=== PATIENT | female | born 1975 | race Caucasian/White ===

== ENCOUNTER 2018-02-20 01:58 | Emergency (ER) | payer MEDICAID ==
[~2018-02-20] VITALS: Ht 154.9 cm; Wt 77.1 kg
[2018-02-20 02:00] VITALS: BP 169/102
--- NOTE | 2018-02-20 02:00 | NUR ---
to bed # 4 ambulatory report given to Berta García
--- NOTE | 2018-02-20 02:00 | NUR ---
PT PRESENTED ER WITH C/O SOB DUE TO ASTHMA ATTACK. PT STATED SHE GOT OFF WORK AND HAD DIFFICULTY BREATHING. PT STATES SHE HAD BEEN DOING BREATHING TREATMENTS BUT HAS HAD NO RELIEF. PT HAS AUDIBLE WHEEZES BILATERAL THROUGHOUT. PT O2 SAT. IS 95 % ON RA AT THIS TIME. PTHAS A DRY NON PRODUCTIVE COUGH AT THIS TIME. PT MED. HX IS ASTHMA AND HTN AND ALLERGIES TO ACETAMENOPHEN. PT IS A/O X 4. PT DENIES FEVER N/V. SKIN IS PINK/WARM/DRY; VSS; PATIENT POSITIONED FOR COMFORT; HOB ELEVATED; BEDRAILS UP X2; BED DOWN. ER MD MADE AWARE OF PT STATUS.
[2018-02-20] MEDS ORDERED: ALBUTEROL SULFATE/IPRATROPIU 3 ML SOL IH ONE ×2 (02:10→02:20)
[2018-02-20] MEDS ORDERED: methylPREDNISolone SS 125 MG in WATER STERILE 2 ML IM ONE (02:15)
[2018-02-20] MEDS ORDERED: ALBUTEROL 0.083% 2.5 MG/3 ML NEBU INH ONE (02:20)
--- NOTE | 2018-02-20 02:23 | NUR ---
Respiratory Therapist at bedside for respiratory intervention.
--- NOTE | 2018-02-20 03:00 | NUR ---
PT STATED SHE HAS RELIEF FROM THE BREATHING TREATMENT. PT HAS MINIMAL WHEEZING ON EXHALE ON RIGHT SIDE OF LUNG. ER MD MADE AWARE OF STATUS.
--- NOTE | 2018-02-20 03:08 | NUR ---
Dr. Rodriguez evaluating patient at bedside.
[2018-02-20 03:54] VITALS: BP 140/97
--- NOTE | 2018-02-20 03:54 | NUR ---
Patient discharged with v/s stable. Written and verbal after care instructions given and explained. Patient alert, oriented and verbalized understanding of instructions. Ambulatory with steady gait. All questions addressed prior to discharge. ID band removed. Patient advised to follow up with PMD. Rx of ALBUTEROL INHALATION, ALBUTEROL AEROSOL, PREDNISONE WAS given. Patient educated on indication of medication including possible reaction and side effects. Opportunity to ask questions provided and answered.
== END 2018-02-20 03:54 | disposition home or self-care (01) ==
LOC: MED 01:58
DX: J45.901 Unspecified asthma with (acute) exacerbation (principal); Z88.6 Allergy status to analgesic agent
CPT/HCPCS: 71045; 94640; 94760; 96372; 99284; J2930; J7613; J7620; Q0092

== ENCOUNTER 2018-03-03 16:40 | Emergency (ER) | payer MEDICAID ==
[~2018-03-03] VITALS: Ht 154.9 cm; Wt 77.1 kg
[2018-03-03 16:45] VITALS: BP 147/100
[2018-03-03] MEDS ORDERED: MAG SULF 2000 MG/WATER PREMIX 50 ML IV ONE (17:30)
[2018-03-03] MEDS ORDERED: NACL 0.9% 1,000 ML IV ONE (17:30)
[2018-03-03] MEDS ORDERED: methylPREDNISolone SS 125 MG in WATER STERILE 2 ML IV ONE (17:30)
[2018-03-03] MEDS ORDERED: ALBUTEROL SULFATE/IPRATROPIU 3 ML SOL IH ONE (17:30)
--- NOTE | 2018-03-03 17:30 | NUR ---
RT AT BEDSIDE FOR INTERVENTION.
--- NOTE | 2018-03-03 17:59 | NUR ---
XRAY AT BEDSIDE
[2018-03-03 19:15] VITALS: BP 147/100
--- NOTE | 2018-03-03 19:16 | NUR ---
Patient discharged with v/s stable. Written and verbal after care instructions given and explained. Patient alert, oriented and verbalized understanding of instructions. Ambulatory with steady gait. All questions addressed prior to discharge. ID band removed. Patient advised to follow up with PMD. Rx of PREDNISONE, ALBUTEROL SULAFTE SOLUTION FOR INHALATION, ALBUTEROL INHALER given. Patient educated on indication of medication including possible reaction and side effects. Opportunity to ask questions provided and answered.
== END 2018-03-03 19:15 | disposition home or self-care (01) ==
LOC: MED 16:40
DX: J45.901 Unspecified asthma with (acute) exacerbation (principal); I10 Essential (primary) hypertension
CPT/HCPCS: 71045; 94640; 96365; 96375; 99283; J2930; J3475; J7030; J7620; Q0092

== ENCOUNTER 2018-04-04 12:03 | Emergency (ER) | payer MEDICAID ==
[~2018-04-04] VITALS: Ht 152.4 cm; Wt 83.6 kg
[2018-04-04 12:04] VITALS: BP 156/93
--- NOTE | 2018-04-04 12:07 | NUR ---
PATIENT AMBULATED TO BED 2.
--- NOTE | 2018-04-04 12:10 | NUR ---
42y/f bib self with c/o sob x 3 days with accessory muscle use and audible exp whz; Has been taking mn tx at home with no relief hx; asthma, htn rx; albuterol
[2018-04-04] MEDS ORDERED: ALBUTEROL SULFATE/IPRATROPIU 3 ML SOL IH ONE ×2 (12:15)
[2018-04-04] MEDS ORDERED: DEXAMETHASONE 10 MG/ML VIAL IM ONE (12:15)
--- NOTE | 2018-04-04 12:21 | NUR ---
ADMITTING DX: SOB HX: ASTHMA AWAKE AND ALERT RESPONSIVE TO BEHAVIORAL SCIENCE CHAIR VERBAL COMMANDS [facility]W POSITION EDUCATION PROVIDED TO PATIENT WITH ACKNOWLEDGEMENT ON [facility] THERAPY RESPIRATORY DRUG AND PEAK FLOW METER [facility] THERAPY GIVEN ORDERED ENCOURAGED PATIENT FOR INTERMITTENT DEEP BREATHING AND COUGH DURING THERAPY TOLERATED WELL WITHOUT ADVERSE REACTIONS NOTED PEAK FLOW ASSESSMENT before 110 L/M after 180 L/M
--- NOTE | 2018-04-04 12:22 | NUR ---
RT AT BEDSIDE
--- NOTE | 2018-04-04 12:41 | NUR ---
FOLLOW UP [facility] THERAPY GIVEN ORDERED ENCOURAGED PATIENT FOR INTERMITTENT DEEP BREATHING AND COUGH DURING THERAPY TOLERATED WELL WITHOUT ADVERSE REACTIONS NOTED
[2018-04-04 14:29] VITALS: BP 136/84
--- NOTE | 2018-04-04 14:29 | NUR ---
Patient discharged with v/s stable. Written and verbal after care instructions given and explained. Patient alert, oriented and verbalized understanding of instructions. Ambulatory with steady gait. All questions addressed prior to discharge. ID band removed. Patient advised to follow up with PMD. Rx of azithromycin, promethazinem, prednisone given. Patient educated on indication of medication including possible reaction and side effects. Opportunity to ask questions provided and answered.
== END 2018-04-04 14:29 | disposition home or self-care (01) ==
LOC: MED 12:03
DX: J98.01 Acute bronchospasm (principal); J44.9 Chronic obstructive pulmonary disease, unspecified; I10 Essential (primary) hypertension; Z88.6 Allergy status to analgesic agent
CPT/HCPCS: 36415; 87804; 94640; 96372; 99284; J1100; J7620

== ENCOUNTER 2018-05-22 15:42 | Emergency (ER) | payer MEDICAID ==
[~2018-05-22] VITALS: Ht 154.9 cm; Wt 77.1 kg
[2018-05-22 15:49] VITALS: BP 189/106
--- NOTE | 2018-05-22 15:49 | NUR ---
PT AMBULATES TO BED 10
--- NOTE | 2018-05-22 15:50 | NUR ---
PT. PRESENT TO THE ED DUE TO SOB , DIFFICULTY BREATHING X 3 DAYS. PT. STATES " I HAVE TAKEN MY INHALER AND MY NEBULIZER TREATMENT BUT IT HAS NOT HELPED". PT. HAS ACCESORY MUSCLE USE, ABLE TO SPEAK IN FULL AND COMPLETE SENTENCES. TACHYPNEIC. SKIN WARM AND DRY AND APPROPRIATE FOR ETHNICITY. 95%VIA ROOM AIR AND STATES " MY CHEST JUST FEELS TIGHT". DENIES ANY CHEST PAIN, DENIES N/V/D. ER MD MADE AWARE. SAFETY PRECAUTIONS. WILL CONTINUE TO MONITOR. RT NOTIFIED. NO HISTORY OF INTUBATION PER PATIENT.
[2018-05-22] MEDS ORDERED: predniSONE 20 MG TAB PO ONE (15:55)
[2018-05-22] MEDS ORDERED: IPRATROPIUM 0.02% 0.5 MG/2.5 ML NEBU INH ONE (15:55)
[2018-05-22] MEDS ORDERED: ALBUTEROL 0.083% 2.5 MG/3 ML NEBU INH ONE ×3 (15:55→18:50)
--- NOTE | 2018-05-22 15:57 | NUR ---
RT AT BEDSIDE AT THIS TIME.
--- NOTE | 2018-05-22 16:33 | NUR ---
PT. COUGHING AND STATES " I STILL FEEL LIKE MY CHEST IS TIGHT". AUDIBLE WHEEZING NOTED. ER MD HIGGINS MADE AWARE. RT NOTIFIED FOR TREATMENT. HOB ELEVATED 90 DEGREES.
--- NOTE | 2018-05-22 17:04 | NUR ---
ER MD HIGGINS RE-EVALUATING PATIENT
[2018-05-22] MEDS ORDERED: methylPREDNISolone SS 125 MG in WATER STERILE 2 ML IV ONE (17:05)
[2018-05-22] MEDS ORDERED: LORazepam 2 MG/ML VIAL IVP ONE (17:05)
[2018-05-22] MEDS ORDERED: MAG SULF 2000 MG/WATER PREMIX 50 ML IV ONE (17:05)
--- NOTE | 2018-05-22 17:12 | NUR ---
XRAY AT BEDSIDE AT THIS TIME
--- NOTE | 2018-05-22 18:15 | NUR ---
PT. RESTING COMFORTABLY IN BED, HOB ELEVATED. VSS. WILL CONTINUE TO MONITOR.
--- NOTE | 2018-05-22 18:54 | NUR ---
RT AT BEDSIDE AT THIS TIME.
--- NOTE | 2018-05-22 19:07 | NUR ---
Pt report given to MICHAEL IVERSON . Transfer of care at this time.
--- NOTE | 2018-05-22 19:10 | NUR ---
Pt report TAKEN FROM SONALI RODRIGUEZ . Transfer of care at this time.
[2018-05-22 20:31] VITALS: BP 155/99
--- NOTE | 2018-05-22 20:31 | NUR ---
Patient discharged with v/s stable. Written and verbal after care instructions given and explained. Patient alert, oriented and verbalized understanding of instructions. Ambulatory with steady gait. All questions addressed prior to discharge. ID band removed. Patient advised to follow up with PMD. Rx of PREDNISONE AND ALBUTEROL given. Patient educated on indication of medication including possible reaction and side effects. Opportunity to ask questions provided and answered.
== END 2018-05-22 20:31 | disposition home or self-care (01) ==
LOC: MED 15:42
DX: J45.901 Unspecified asthma with (acute) exacerbation (principal); R07.89 Other chest pain; M54.9 Dorsalgia, unspecified; I10 Essential (primary) hypertension; Z88.6 Allergy status to analgesic agent
CPT/HCPCS: 71045; 94640; 96365; 96366; 96375; 99285; J2060; J2930; J3475; J7512; J7613; J7644; Q0092

== ENCOUNTER 2018-06-09 17:58 | Emergency (ER) | payer MEDICAID ==
[~2018-06-09] VITALS: Ht 154.9 cm; Wt 77.1 kg
[2018-06-09 18:05] VITALS: BP 134/87
[2018-06-09] MEDS ORDERED: ALBUTEROL SULFATE/IPRATROPIU 3 ML SOL IH ONE (18:05)
[2018-06-09] MEDS ORDERED: predniSONE 20 MG TAB PO ONE (18:10)
[2018-06-09] MEDS ORDERED: ALBUTEROL 0.083% 2.5 MG/3 ML NEBU INH ONE (18:10)
--- NOTE | 2018-06-09 18:48 | NUR ---
43 Y/O F CAME TO ED FOR ASTHMA EXACERBATION. LABORED BREATHING. NO USE OF ACCESSROY MUSCLE. LUNG CARRILLO CLEAR. NOTIFIED. WILL CONTINUE TO MONITOR.
--- NOTE | 2018-06-09 19:03 | NUR ---
Patient discharged with v/s stable. Written and verbal after care instructions given and explained. Patient alert, oriented and verbalized understanding of instructions. Ambulatory with steady gait. All questions addressed prior to discharge. ID band removed. Patient advised to follow up with PMD. Rx of Albuterol and Prednisone given. Patient educated on indication of medication including possible reaction and side effects. Opportunity to ask questions provided and answered.
[2018-06-09 19:04] VITALS: BP 134/87
== END 2018-06-09 19:03 | disposition home or self-care (01) ==
LOC: MED 17:58
DX: J45.901 Unspecified asthma with (acute) exacerbation (principal); J02.9 Acute pharyngitis, unspecified; I10 Essential (primary) hypertension; Z88.6 Allergy status to analgesic agent
CPT/HCPCS: 94640; 99283; J7512; J7613; J7620

== ENCOUNTER 2018-07-14 11:53 | Emergency (ER) | payer MEDICAID ==
[~2018-07-14] VITALS: Ht 154.9 cm; Wt 81.2 kg
[2018-07-14 12:00] VITALS: BP 116/80
--- NOTE | 2018-07-14 12:06 | NUR ---
Patient ambulated to bed 3.
--- NOTE | 2018-07-14 12:15 | NUR ---
PT BIB SELF TO THE ED WITH THE CHIEF C/O SOB X3 DAYS. HAS COUGH WITH PHLEGM X3 DAYS. NO BLOOD IN COUGH. WHEEZING LUNGS. DENIES FEVER. DENIES CHEST PAIN. STATES CHEST TIGHTNESS. DENIES N/V/D. DENIES OTHER PROBLEM. PLACED PT ON O2 AT 2 LTR/MIN VIA NC. HOB ELEVATED. BP ELEVATED. HX OF HTN. PT MISSED MORNING DOSE OF LISINOPRIL. PT EVALUATED BY ER .
--- NOTE | 2018-07-14 12:22 | NUR ---
PER V.O. DR. DINESH VAUGHN CONTINOUS NEBULIZER THERAPY X 1 HOUR WITH ALBUTEROL (2.5mg) x 5 UD + IPRATROPUIM BROMIDE (0.5mg) x 1 UD
--- NOTE | 2018-07-14 12:28 | NUR ---
ADMITTING DX: SOB HX ASTHMA AWAKE AND ALERT PATIENT ON SUPPLEMENTAL OXYGEN AT 2 LPM VIA NC EDCUATION PROVIDED TO PATIENT WITH ACKNOWLEDGEMENT ON [facility] THERAPY RESPIRATORY DRUGS AND PEAK FLOW METER HHN THERAPY AND RESIRATORY DRUGS GIVEN ORDERED ENCOURAGED PATIENT FOR INTERMITTENT DEEP BREATHING DURING THERAPY Addendum: 07/14/18 at 1312 by FAITHA PEAK FLOW: before 165 l/m after 240 l/m
[2018-07-14] MEDS ORDERED: IPRATROPIUM 0.02% 0.5 MG/2.5 ML NEBU INH ONE (12:35)
[2018-07-14] MEDS ORDERED: ALBUTEROL 0.083% 2.5 MG/3 ML NEBU INH ONE ×2 (12:35→12:45)
[2018-07-14] MEDS ORDERED: predniSONE 20 MG TAB PO ONE (12:35)
[2018-07-14 13:25] VITALS: BP 153/89
--- NOTE | 2018-07-14 13:52 | NUR ---
PATIENT ELOPED FROM FACILITY. DISCHARGE INSTRUCTIONS NOT GIVEN TO PATIENT. DR. VAUGHN NOTIFIED.
== END 2018-07-14 13:52 | disposition left against medical advice (07) ==
LOC: MED 11:53
DX: J45.901 Unspecified asthma with (acute) exacerbation (principal); I10 Essential (primary) hypertension; Z88.6 Allergy status to analgesic agent
CPT/HCPCS: 94640; 99283; J7512; J7613; J7644

== ENCOUNTER 2019-03-17 16:15 | Emergency (ER) | payer MEDICAID ==
[~2019-03-17] VITALS: Ht 154.9 cm; Wt 79.4 kg
[2019-03-17 16:21] VITALS: BP 175/104
--- NOTE | 2019-03-17 16:21 | NUR ---
PT TAKEN TO ER BED 07
[2019-03-17] MEDS ORDERED: ALBUTEROL SULFATE/IPRATROPIU 3 ML SOL IH ONE ×2 (16:25→16:40)
[2019-03-17] MEDS ORDERED: DEXAMETHASONE 10 MG/ML VIAL IM ONE (16:40)
[2019-03-17] MEDS ORDERED: diphenhydrAMINE 50 MG/ML VIAL IM ONE (16:40)
--- NOTE | 2019-03-17 17:33 | NUR ---
PT WITH KNOWN PMH: ASTHMA. STATES DIFF BREATHING 2 DAYS AGO UNRELIEVED BY HH[facility] TX AT HOME. PROGRESSING IN SEVERITY
[2019-03-17 18:43] VITALS: BP 149/93
--- NOTE | 2019-03-17 18:43 | NUR ---
Patient discharged with v/s stable. Written and verbal after care instructions given and explained. Patient alert, oriented and verbalized understanding of instructions. Ambulatory with steady gait. All questions addressed prior to discharge. ID band removed. Patient advised to follow up with PMD. Rx of ALBUTEROL INH, PROMETHAZINE, AZITHROMYCIN, PREDNISONE given. Patient educated on indication of medication including possible reaction and side effects. Opportunity to ask questions provided and answered.
== END 2019-03-17 18:43 | disposition home or self-care (01) ==
LOC: MED 16:15
DX: J45.901 Unspecified asthma with (acute) exacerbation (principal); J06.9 Acute upper respiratory infection, unspecified
CPT/HCPCS: 94640; 96372; 99284; J1100; J1200; J7620

== ENCOUNTER 2022-06-11 23:37 | Emergency (ER) | payer MEDICAID ==
[~2022-06-11] VITALS: Ht 154.9 cm; Wt 81.6 kg
[2022-06-11 23:40] VITALS: BP 189/100
--- NOTE | 2022-06-11 23:40 | NUR ---
TO BED AMBULATORY
[2022-06-11 23:50] VITALS: BP 169/110
--- NOTE | 2022-06-11 23:50 | NUR ---
47 Y/O F presents with sob x3days. pt stated she has a hx of asthma abd none of her asthma medications were working at home. pt denies any pain, nvd. pt is a&ox4, skin intact. pt stated she has htn and regularly takes lisinopril. pmh- htn allergies-tylenol
--- NOTE | 2022-06-11 23:58 | NUR ---
Dr. Rodriguez at bedside
[2022-06-12] MEDS ORDERED: ALBUTEROL 0.083% 2.5 MG/3 ML NEBU INH ONE (00:05)
[2022-06-12] MEDS ORDERED: IPRATROPIUM 0.02% 0.5 MG/2.5 ML NEBU INH ONE (00:05)
[2022-06-12] MEDS ORDERED: methylPREDNISolone SS 125 MG in WATER STERILE 2 ML IM ONE (00:05)
[2022-06-12] MEDS ORDERED: WATER STERILE 10 ML MC ONE (00:20)
[2022-06-12] MEDS ORDERED: methylPREDNISolone SS 125 MG/2 ML VIAL ONE (00:20)
--- NOTE | 2022-06-12 00:20 | NUR ---
X-Ray at bedside.
--- NOTE | 2022-06-12 01:16 | NUR ---
Dr. Rodriguez examining patient.
[2022-06-12] MEDS ORDERED: PRED20TA5 PO (01:21)
[2022-06-12] MEDS ORDERED: PRON INH (01:21)
[2022-06-12] MEDS ORDERED: ALBU0.0912 IH (01:21)
--- NOTE | 2022-06-12 01:36 | NUR ---
Patient discharged with v/s stable. Written and verbal after care instructions given and explained. Patient verbalized understanding. Ambulatory with steady gait. All questions addressed prior to discharge. Advised to follow up with PMD.
== END 2022-06-12 01:36 | disposition home or self-care (01) ==
LOC: MED 23:37
DX: J45.901 Unspecified asthma with (acute) exacerbation (principal); Z79.899 Other long term (current) drug therapy; Z98.890 Other specified postprocedural states
CPT/HCPCS: 71045; 94640; 94760; 96372; 99283; J2930; J7613; J7644; Q0092

== ENCOUNTER 2022-12-13 04:00 | Emergency (ER) | payer MEDICAID ==
[~2022-12-13] VITALS: Ht 154.9 cm; Wt 77.1 kg
[~2022-12-13 04:00] MED LIST: ALBU0.0912 IH; PRED20TA5 PO; PRON INH
[2022-12-13 04:05] VITALS: BP 164/90; PULSE 118; RESP 20; TEMP 98; O2SAT 93
[2022-12-13] MEDS ORDERED: ALBUTEROL SULFATE/IPRATROPIU 3 ML SOL IH ONE (04:25)
[2022-12-13] MEDS ORDERED: predniSONE 20 MG TAB PO ONE (04:25)
[2022-12-13] MEDS ORDERED: ALBUTEROL 0.083% 2.5 MG/3 ML NEBU INH ONE ×5 (04:25→09:30)
[2022-12-13 04:28] VITALS: PULSE 127; RESP 26; O2SAT 88
[2022-12-13] MEDS ORDERED: IPRATROPIUM 0.02% 0.5 MG/2.5 ML NEBU INH ONE ×4 (06:30→09:33)
[2022-12-13 06:47] VITALS: TEMP 98
[2022-12-13 06:57] VITALS: PULSE 104; RESP 17; O2SAT 100
[2022-12-13] MEDS ORDERED: MAG SULF 2000 MG/WATER PREMIX 50 ML IV ONE (07:30)
[2022-12-13 08:07] LABS: BASOPHILS # (AUTO) 0.1 K/uL (0.00-0.22); BASOPHILS % (AUTO) 0.9 % (0.0-2.0); EOSINOPHILS # (AUTO) 0.3 K/uL (0-0.4); EOSINOPHILS % (AUTO) 3.8 % (0.0-4.0); HEMOGLOBIN 12.3 g/dL (12.0-16.0); LYMPHOCYTES # (AUTO) 0.7 K/uL (2.5-16.5); LYMPHOCYTES % (AUTO) 7.5 % (20.5-51.1); MEAN CORPUSCULAR HEMOGLOBIN 28 pg (27-31); MEAN CORPUSCULAR HGB CONC 33 g/dL (33-37); MEAN CORPUSCULAR VOLUME 82.5 fL (80-94); MONOCYTES # (AUTO) 0.2 K/uL (0.8-1.0); MONOCYTES % (AUTO) 1.8 % (1.7-9.3); NEUTROPHILS # (AUTO) 7.5 K/uL (1.8-7.7); PLATELET COUNT (AUTO) 318 K/uL (140-450); RED BLOOD CELL COUNT(AUTO) 4.48 MIL/uL (4.20-5.40); RED CELL DISTRIBUTION WIDTH 15.7 % (11.6-13.7); WHITE BLOOD COUNT (AUTO) 8.7 K/uL (4.8-10.8)
[2022-12-13 08:18] LABS: ANION GAP 13.1 (8-16); CALCIUM 8.9 mg/dL (8.5-10.1); CREATININE 1.2 mg/dL (0.6-1.3); POTASSIUM 4.1 mmol/L (3.5-5.1)
[2022-12-13] MEDS ORDERED: PRED20TA5 PO (09:14)
[2022-12-13 09:19] VITALS: BP 132/77
[2022-12-13 09:46] VITALS: PULSE 100; RESP 21; O2SAT 99
== END 2022-12-13 09:45 | disposition home or self-care (01) ==
LOC: MED 04:00
DX: J45.901 Unspecified asthma with (acute) exacerbation (principal); F41.9 Anxiety disorder, unspecified; I10 Essential (primary) hypertension; Z79.899 Other long term (current) drug therapy
CPT/HCPCS: 36415; 71045; 80048; 85025; 94640; 96365; 99285; J3475; J7512; J7613; J7644; Q0092

== ENCOUNTER 2023-09-30 22:24 | Inpatient (IN) | payer MEDICAID ==
[~2023-09-30] VITALS: Ht 152.4 cm; Wt 89.4 kg
[2023-09-30 22:29] VITALS: BP 86/54; PULSE 125; RESP 14; TEMP 95; O2SAT 98
[2023-09-30] MEDS: NACL 0.9% 1,000 ML IV ONE (22:56)
[2023-09-30 23:53] VITALS: O2SAT 100
[2023-10-01] MEDS: ONDANSETRON 4 MG/2 ML VIAL IVP ONE ×2 (00:12→04:23)
[2023-10-01] MEDS: NACL 0.9% 1,000 ML IV ONE (00:16)
[2023-10-01 00:48] LABS: ANION GAP 15.9 (8-16); CALCIUM 9.5 mg/dL (8.5-10.1); CARBON DIOXIDE 30.4 mmol/L (21-32); CREATININE 2.3 mg/dL (0.6-1.3); POTASSIUM 3.3 mmol/L (3.5-5.1)
[2023-10-01 00:51] LABS: BASOPHILS # (AUTO) 0.1 K/uL (0.00-0.22); BASOPHILS % (AUTO) 0.9 % (0.0-2.0); EOSINOPHILS # (AUTO) 0.2 K/uL (0-0.4); EOSINOPHILS % (AUTO) 2.3 % (0.0-4.0); HEMATOCRIT 38.1 % (36-48); LYMPHOCYTES # (AUTO) 2.2 K/uL (2.5-16.5); LYMPHOCYTES % (AUTO) 24.5 % (20.5-51.1); MEAN CORPUSCULAR HEMOGLOBIN 22 pg (27-31); MEAN CORPUSCULAR HGB CONC 32 g/dL (33-37); MEAN CORPUSCULAR VOLUME 69.7 fL (80-94); MONOCYTES # (AUTO) 1.3 K/uL (0.8-1.0); MONOCYTES % (AUTO) 14.4 % (1.7-9.3); NEUTROPHILS # (AUTO) 5.1 K/uL (1.8-7.7); NEUTROPHILS % (AUTO) 57.9 % (42.2-75.2); PLATELET COUNT (AUTO) 447 K/uL (140-450); RED BLOOD CELL COUNT(AUTO) 5.46 MIL/uL (4.20-5.40); RED CELL DISTRIBUTION WIDTH 21.7 % (11.6-13.7); WHITE BLOOD COUNT (AUTO) 8.9 K/uL (4.8-10.8)
[2023-10-01] MEDS: MORPHINE SULFATE 4 MG/ML SYR IVP ONE (01:32)
[2023-10-01 04:30] VITALS: O2SAT 100
[2023-10-01 06:00] LABS: BASOPHILS % (AUTO) 0.7 % (0.0-2.0); EOSINOPHILS # (AUTO) 0.1 K/uL (0-0.4); HEMATOCRIT 28.2 % (36-48); HEMOGLOBIN 9.1 g/dL (12.0-16.0); LYMPHOCYTES % (AUTO) 17.9 % (20.5-51.1); MEAN CORPUSCULAR HEMOGLOBIN 23 pg (27-31); MEAN CORPUSCULAR HGB CONC 32 g/dL (33-37); MEAN CORPUSCULAR VOLUME 69.5 fL (80-94); MONOCYTES # (AUTO) 0.6 K/uL (0.8-1.0); MONOCYTES % (AUTO) 10.4 % (1.7-9.3); PLATELET COUNT (AUTO) 271 K/uL (140-450); RED BLOOD CELL COUNT(AUTO) 4.06 MIL/uL (4.20-5.40); RED CELL DISTRIBUTION WIDTH 20.9 % (11.6-13.7)
[2023-10-01 06:05] LABS: WHITE BLOOD COUNT (AUTO) 5.8 K/uL (4.8-10.8)
[2023-10-01 06:22] LABS: ALBUMIN 3.4 g/dL (3.4-5.0); ANION GAP 11.2 (8-16); CARBON DIOXIDE 30.3 mmol/L (21-32); CREATININE 1.8 mg/dL (0.6-1.3); POTASSIUM 3.5 mmol/L (3.5-5.1); TOTAL BILIRUBIN 0.3 mg/dL (0.0-1.0); TOTAL PROTEIN, SERUM 6.8 g/dL (6.4-8.2)
[2023-10-01 06:36] VITALS: O2SAT 100
[2023-10-01] MEDS ORDERED: LISI-953 PO (06:41)
[2023-10-01] MEDS: NACL 0.9% 1,000 ML IV SCH (09:00)
[2023-10-01] MEDS: ENOXAPARIN 30 MG/0.3 ML SYR SUBQ SCH (09:20)
[2023-10-01] MEDS ORDERED: METOCLOPRAMIDE 10 MG/2 ML INJ VIAL IVP PRN (11:20)
[2023-10-01] MEDS ORDERED: LORazepam 1 MG TAB PO PRN (11:25)
[2023-10-01] MEDS: METOCLOPRAMIDE 10 MG/2 ML INJ VIAL IVP SCH (12:05)
[2023-10-01] MEDS ORDERED: ONDANSETRON 4 MG/2 ML VIAL IVP PRN (12:40)
[2023-10-01 12:58] LABS: APPEARANCE,URINE CLEAR (CLEAR); BILIRUBIN,URINE 1+ (NEGATIVE); BLOOD, URINE TRACE-I (NEGATIVE); COLOR,URINE YELLOW (YELLOW); LEUKOCYTE ESTERASE ,URINE NEGATIVE (NEGATIVE); NITRITE, URINE NEGATIVE (NEGATIVE); PH,URINE 6.5 (5.0-9.0); PROTEIN,URINE TRACE (NEGATIVE); UGLUCOSE NEGATIVE (NEGATIVE); UROBILINOGEN,URINE 0.2 EU/dL (0.2 - 1)
[2023-10-01 13:01] LABS: ICTOTEST NEGATIVE (NEGATIVE)
[2023-10-01 20:00] VITALS: BP 110/69; PULSE 80; PULSE 94; RESP 16; TEMP 97.3; O2SAT 94; O2SAT 96
[2023-10-02] MEDS: ZOLPIDEM 5 MG TAB PO PRN (02:25)
[2023-10-02 04:00] VITALS: BP 110/114; PULSE 90; RESP 16; TEMP 97.2; O2SAT 96
[2023-10-02 05:49] LABS: BASOPHILS % (AUTO) 0.8 % (0.0-2.0); EOSINOPHILS # (AUTO) 0.2 K/uL (0-0.4); EOSINOPHILS % (AUTO) 3.7 % (0.0-4.0); HEMATOCRIT 31.4 % (36-48); LYMPHOCYTES # (AUTO) 1.4 K/uL (2.5-16.5); LYMPHOCYTES % (AUTO) 22.6 % (20.5-51.1); MEAN CORPUSCULAR HEMOGLOBIN 23 pg (27-31); MEAN CORPUSCULAR HGB CONC 32 g/dL (33-37); MEAN CORPUSCULAR VOLUME 70.5 fL (80-94); MONOCYTES # (AUTO) 0.8 K/uL (0.8-1.0); MONOCYTES % (AUTO) 12.7 % (1.7-9.3); NEUTROPHILS # (AUTO) 3.7 K/uL (1.8-7.7); NEUTROPHILS % (AUTO) 60.2 % (42.2-75.2); PLATELET COUNT (AUTO) 300 K/uL (140-450); RED BLOOD CELL COUNT(AUTO) 4.45 MIL/uL (4.20-5.40); RED CELL DISTRIBUTION WIDTH 21.3 % (11.6-13.7); WHITE BLOOD COUNT (AUTO) 6.1 K/uL (4.8-10.8)
[2023-10-02 06:44] LABS: ALBUMIN 3.4 g/dL (3.4-5.0); CALCIUM 8.3 mg/dL (8.5-10.1); CARBON DIOXIDE 25.8 mmol/L (21-32); CREATININE 1.2 mg/dL (0.6-1.3); POTASSIUM 3.8 mmol/L (3.5-5.1); TOTAL BILIRUBIN 0.3 mg/dL (0.0-1.0); TOTAL PROTEIN, SERUM 6.9 g/dL (6.4-8.2)
[2023-10-02 06:49] LABS: PHOSPHORUS 2.7 mg/dL (2.5-4.9)
[2023-10-02 08:00] VITALS: BP 118/77; PULSE 105; RESP 18; TEMP 97.6; O2SAT 98
[2023-10-02] MEDS: lisinopriL 20 MG TAB PO SCH (09:00)
[2023-10-02] MEDS: DOCUSATE SODIUM 100 MG GELCAP PO SCH (09:00)
[2023-10-02] MEDS: PANTOPRAZOLE 40 MG INJ VIAL IVP SCH (11:01)
[2023-10-02] MEDS ORDERED: ONDA-188 PO (15:20)
[2023-10-02 15:25] VITALS: BP 118/77; PULSE 99; RESP 18; TEMP 97.6
== END 2023-10-02 16:20 | disposition home or self-care (01) | DRG 254 ==
LOC: MED 22:24 → MTU 10-01 05:36
PROVIDERS: ADMIT Student in an Organized Health Care Education/Training Program; ATTEND Student in an Organized Health Care Education/Training Program
DX: K31.1 Adult hypertrophic pyloric stenosis (principal); N17.9 Acute kidney failure, unspecified; E87.1 Hypo-osmolality and hyponatremia; E86.0 Dehydration; E86.1 Hypovolemia; J45.909 Unspecified asthma, uncomplicated; I10 Essential (primary) hypertension; E87.6 Hypokalemia; E66.9 Obesity, unspecified; Z68.38 Body mass index [BMI] 38.0-38.9, adult; Z98.891 History of uterine scar from previous surgery; Z79.899 Other long term (current) drug therapy
CPT/HCPCS: 36415; 71045; 80048; 80053; 81003; 82948; 83605; 83735; 84100; 85025; 87081; 96374; 96375; 96376; 99285; C9113; J1650; J2270; J2405; J2765